=== PATIENT | female | born 1925 | race Caucasian/White ===

== ENCOUNTER 2017-01-27 12:39 | Outpatient (CLI) | payer MEDICARE, OTHER ==
--- NOTE | 2017-01-28 11:46 | CT Report ---
NONCONTRAST CHEST CT: 01/27/2017 CLINICAL HISTORY: An 89-year-old female with a past history of endometrial cancer in 1995 and presently malignant neoplasm of the ascending colon. TECHNIQUE: Noncontrast CT exam of the chest was done at 5 x 5 mm intervals with axial, coronal, and sagittal reconstruction images. In accordance with CT protocol optimization, one or more of the following dose reduction techniques were utilized for this exam: automated exposure control, adjustment of mA and/or KV based on patient size, or use of iterative reconstructive technique. FINDINGS: Mediastinum demonstrates some small lymph nodes in the anterior carinal region. These lymph nodes most likely are benign. These each measure 0.7 cm or less in diameter. There are a few small lymph nodes in the right retrocrural region. These measure all less than 0.6 cm. These too most likely are benign. Mild cardiomegaly is noted with calcification noted in all three coronary arteries. Extensive vascular calcification is seen in the ascending and descending aorta with mild ectasia of these structures. Lung windows show some evidence of respiratory motion which does interfere with the accuracy of the exam. There are no definite parenchymal nodules seen on present study. There is [id number] amount of interstitial parenchymal disease in the posterior aspect of each lower lobe, right greater than left. This most likely is a result of scarring as well as atelectasis. Some scarring is noted along the right minor fissure. Some mild atelectasis or scarring is noted in the inferior segment of the left lingula. Upper abdomen demonstrates no definite adrenal abnormality. Right kidney shows a calculus in association with one of its mid pole calices measuring 0.8 cm. There is also at least two parapelvic cysts in association with the right kidney. They measure 2.5 cm and 3.2 cm respectively. There are some small left parapelvic cysts present. Bones demonstrate an extraaxial calcified mass within the right side of the central spinal canal at the level of T10. This probably represents a calcified meningioma. It produces a prominent indentation on the right side of the spinal cord at this level. IMPRESSION: 1. A CALCIFIED EXTRAAXIAL MASS IS NOTED IN THE RIGHT SIDE OF THE CENTRAL SPINAL CANAL AT T10. THIS MASS MEASURES 0.7 X 0.9 X 1.6 CM AND PRODUCES A PROMINENT INDENTATION ON THE RIGHT SIDE OF THE SPINAL CORD AT THIS LEVEL. THE FINDING MOST LIKELY REPRESENTS A CALCIFIED MENINGIOMA. SECONDARY CONSIDERATION IS PROMINENT SPUR. 2. EXAMINATION IS NEGATIVE FOR METASTATIC DISEASE IN THE MEDIASTINUM OR LUNGS. 3. PROMINENT SCARRING AND ATELECTASIS IS SEEN AT THE POSTERIOR ASPECT OF EACH LOWER LOBE, RIGHT GREATER THAN LEFT. 4. MILD CARDIOMEGALY WITH ATHEROSCLEROSIS IS NOTED INVOLVING THE CORONARY ARTERIES. 5. A 0.8 CM CALCULUS IS SEEN IN ASSOCIATION WITH A CALYX IN THE MID PORTION OF THE RIGHT KIDNEY. ADJACENT 2.5 CM AND 3.2 CM PARAPELVIC CYSTS ARE SEEN. SEVERAL SMALL PERIPELVIC CYSTS ARE NOTED IN THE LEFT KIDNEY. JOB #: [id number] EXT JOB #: [id number] TRACY
== END 2017-01-27 12:40 | disposition home or self-care (01) ==
LOC: DI 12:39
PROVIDERS: ATTEND Surgery
DX: C18.2 Malignant neoplasm of ascending colon (principal); M48.9 Spondylopathy, unspecified; J98.11 Atelectasis; N20.0 Calculus of kidney; N94.89 Other specified conditions associated with female genital organs and menstrual cycle
CPT/HCPCS: 71250